=== PATIENT | female | born 1955 | race Caucasian/White ===

== ENCOUNTER 2023-04-06 17:44 | Emergency (ER) | payer MEDICARE, OTHER ==
[~2023-04-06] VITALS: Ht 149.9 cm; Wt 68.8 kg
[2023-04-06] MEDS ORDERED: PROPRANOLOL ER80 MG PO (18:02)
[2023-04-06] MEDS ORDERED: TRELEGY ELLIPT1 EACH IH (18:03)
[2023-04-06] MEDS ORDERED: PROAIR HFA0.09 MG/AC IH (18:03)
[2023-04-06 18:18] LABS: HEMATOCRIT 37.8 % (37.0-47.0); HEMOGLOBIN 11.9 g/dL (12.5-16.0); MEAN CELL VOLUME 98 fl (78-100); MEAN CORPUSCULAR HEMOGLOBIN 31 pg (27-31); MEAN CORPUSCULAR HGB CONC 32 g/dL (33-37); MEAN PLATELET VOLUME 11.4 fl (7.4-10.4); PLATELET COUNT 108 K/mm3 (130-400); RED BLOOD COUNT 3.86 M/mm3 (4.10-5.30); RED CELL DISTRIBUTION WIDTH 13.8 % (11.5-14.5); WHITE BLOOD COUNT 4.8 K/mm3 (4.8-10.8)
[2023-04-06 18:21] LABS: ALBUMIN 3.7 g/dL (3.4-4.8)
[2023-04-06 18:23] LABS: CALCIUM 8.8 mg/dL (8.3-10.5)
[2023-04-06 18:24] LABS: TOTAL PROTEIN 6.3 g/dL (6.2-8.1)
[2023-04-06 18:38] LABS: TOTAL BILIRUBIN 0.7 mg/dL (0.2-1.2)
[2023-04-06 18:47] LABS: LYMPHOCYTE 12 % (20-51); MONOCYTE 7 % (3-10); NEUTROPHILS 80 % (42-75)
[2023-04-06] MEDS ORDERED: TAMIFLU 75MG75 MG PO (19:52)
[2023-04-06] MEDS ORDERED: BENZONATATE200 MG PO (20:00)
[2023-04-06 20:25] VITALS: BP 141/75
== END 2023-04-06 20:25 | disposition home or self-care (01) ==
LOC: ED 17:44
PROVIDERS: Nurse Practitioner
DX: J10.1 Influenza due to other identified influenza virus with other respiratory manifestations (principal); Z87.891 Personal history of nicotine dependence; Z28.310 Unvaccinated for COVID-19
CPT/HCPCS: J7030